=== PATIENT | female | born 1940 | race Caucasian/White ===

== ENCOUNTER → 2016-11-29 | Outpatient (CLI) | payer MEDICARE, OTHER ==
[~2016-11-29] MED LIST: ACET325T38 PO; ACT35T; AGM875T; ASP325T PO; ASP81TEC PO; ATEN25TA PO; ATEN50TA PO; ATN25T PO; ATOR80TA PO; ATOR80TA76 PO; CALC-80 PO; CEFU500T PO; CLOP75TA28 PO; CLPD75T PO; CYCL10TA45; CYCL5TAB11 PO; FISH1CAP15 PO; FRSM20T; FURO40TA4 PO; FURO80TA3 PO; HCT25T PO; HCTZ12.5T PO; HYDR25TA4 PO; KCL10CCR PO; LEVO100T7 PO; LEVO250T7; LEVO500T69 PO; LOSA25TA15 PO; LOSA25TA21 PO; LOSA25TA5 PO; LVT.1T PO; NFCORC1000; NITR0.4T12 SL; NTR.4SL SL; OMG1KC PO; PREMARIN VAG CR45 GM VG; RANO10003 PO; RANO500T3 PO; RISE150T PO; RMP5C PO; SPIR25TA PO; SPIR25TA3 PO; SPRN25T PO; TRAM50TA2 PO
--- NOTE | 2016-11-29 11:45 | Diagnostic Imaging Report ---
INDICATION: Cough. PA and lateral views of the chest are obtained with comparison made to study of 09/05/2015. FINDINGS: Heart size and pulmonary vascularity are within normal limits. Dual-chamber cardiac pacemaker remains in stable position. There is no evidence of pneumothorax, consolidation or significant pleural fluid. Thoracic spondylosis is again noted. IMPRESSION: No acute abnormality or significant change is identified. Dictated by: Dictated on workstation # [id number]
== END ==
LOC: RAD 11:10
PROVIDERS: ATTEND Internal Medicine
DX: R05 Cough (principal); R09.89 Other specified symptoms and signs involving the circulatory and respiratory systems
CPT/HCPCS: 71020

== ENCOUNTER → 2017-05-03 | Outpatient (CLI) | payer MEDICARE, OTHER ==
[~2017-05-03] MED LIST changes: +CATHETER FLUSH 10 ML SYR IV PRN; +REGADENOSON 0.4 MG/5 ML SYR (LEXISCAN) IV ONE
[2017-05-03 09:31] VITALS: BP 188/99
--- NOTE | 2017-05-04 14:25 | STRESS TEST ---
DATE OF SERVICE: 05/03/2017 REPORT TITLE: RESTING AND POST REGADENOSON TECHNETIUM 99M TETROFOSMIN SPECT CT IMAGING ORDERING PHYSICIAN: Dr. Robert. PRIMARY PHYSICIAN: Dr. Wade. CLINICAL DIAGNOSIS: Coronary artery disease. DESCRIPTION: Baseline images were carried out after injection of 10.21 mCi of Technetium 99m Tetrofosmin. This was followed by 0.4 mg regadenoson and 30.7 mCi of Technetium-99m Tetrofosmin for stress imaging. The electrocardiogram showed sinus rhythm with ST and T-wave abnormality in the inferolateral leads. This did not change with the regadenoson infusion. Review of images at rest and following stress indicates a basal inferior perfusion defect that is predominantly fixed. Gated images show basal inferior hypokinesis to akinesis. Left ventricular ejection fraction is calculated to be 48%. Left ventricular end diastolic volume is 61 mL. TID is absent (0.98). CONCLUSIONS: 1. The study is indicative of a small basal inferior infarction with only a small amount of mehul-infarct ischemia. 2. Basal inferior hypokinesis to akinesis. 3. Left ventricular ejection fraction is calculated to be 48%. Job ID: [id number] DocumentID: [id number] Dictated Date: 05/03/2017 14:39:50 Shoe Stitcher Odd Date: 05/03/2017 21:10:06 Dictated By: ZOEY ROBERT MD, MA, FACP, FACC,
== END ==
LOC: CARD 08:03
PROVIDERS: ATTEND Internal Medicine Cardiovascular Disease
DX: I25.10 Atherosclerotic heart disease of native coronary artery without angina pectoris (principal); Z95.0 Presence of cardiac pacemaker; I25.5 Ischemic cardiomyopathy; I65.23 Occlusion and stenosis of bilateral carotid arteries; E78.4 Other hyperlipidemia; I10 Essential (primary) hypertension; I49.5 Sick sinus syndrome
CPT/HCPCS: 78452; 93017

== ENCOUNTER → 2017-07-07 | Outpatient (CLI) | payer MEDICARE, OTHER ==
[~2017-07-07] MED LIST changes: -CATHETER FLUSH 10 ML SYR IV PRN; -REGADENOSON 0.4 MG/5 ML SYR (LEXISCAN) IV ONE
== END ==
LOC: RAD 10:19
PROVIDERS: ATTEND Internal Medicine
DX: Z12.31 Encounter for screening mammogram for malignant neoplasm of breast (principal)
CPT/HCPCS: 77067

== ENCOUNTER → 2017-08-25 | Outpatient (CLI) | payer MEDICARE, OTHER ==
--- NOTE | 2017-08-25 08:30 | Diagnostic Imaging Report ---
PROCEDURE: CT sinuses without contrast TECHNIQUE: Multiple contiguous axial images were obtained through the sinuses without the use of intravenous contrast. Coronal and sagittal reformations were then performed. INDICATION: Chronic sinusitis. COMPARISON: None FINDINGS: Evaluation of the paranasal sinuses demonstrates air-fluid levels within the bilateral maxillary sinuses as well as mild mucosal thickening, left greater than right. Despite this, the osteomeatal complexes do appear to be patent. The remainder of the paranasal sinuses are unremarkable. Bony nasal septum is deviated to the right. Otherwise, the nasal septum is intact. Bilateral nasal bones are intact as well. No other acute appearing osseous abnormalities are seen. Mastoid air cells are clear bilaterally. Superficial soft tissue structures are unremarkable. Included portions of the intracranial structures show no additional acute abnormalities. IMPRESSION: 1. Mucosal thickening with air-fluid levels in the bilateral maxillary sinuses, left greater than right. Correlation with acute sinusitis is recommended. Dictated by: Dictated on workstation # [id number]
== END ==
LOC: RAD 07:29
PROVIDERS: ATTEND Nurse Practitioner
DX: J32.0 Chronic maxillary sinusitis (principal)
CPT/HCPCS: 70486

== ENCOUNTER 2018-01-23 16:55 | Outpatient (RCR) | payer MEDICARE, OTHER ==
[~2018-01-23 16:55] MED LIST changes: -SPIR25TA3 PO; +SPIR25TA5 PO
== END 2018-02-01 | disposition home or self-care (01) ==
LOC: CR3 16:55
PROVIDERS: ATTEND Internal Medicine Cardiovascular Disease
DX: Z29.8 Encounter for other specified prophylactic measures (principal)

== ENCOUNTER 2018-03-15 16:33 | Outpatient (RCR) | payer MEDICARE, OTHER ==
[~2018-03-15 16:33] MED LIST changes: -LOSA25TA21 PO; +LOSA25TA6 PO
== END 2018-04-14 | disposition home or self-care (01) ==
LOC: CR3 16:33
PROVIDERS: ATTEND Internal Medicine Cardiovascular Disease
DX: Z29.8 Encounter for other specified prophylactic measures (principal)

== ENCOUNTER 2018-05-17 13:20 | Outpatient (RCR) | payer MEDICARE, OTHER | END 2018-05-31 | disposition home or self-care (01) | LOC: CR3 13:20 | PROVIDERS: ATTEND Internal Medicine Cardiovascular Disease | DX: Z29.8 Encounter for other specified prophylactic measures (principal) ==

== ENCOUNTER → 2018-07-10 | Outpatient (CLI) | payer MEDICARE, OTHER ==
--- NOTE | 2018-07-11 15:45 | Diagnostic Imaging Report ---
EXAM: Digital mammogram, bilateral screening with 3D tomosynthesis and Computer Aided Detection (CAD) system. COMPARISON: This study was compared to the prior exams of 07/07/2017, 07/06/2016 and 06/25/2015. There are no current complaints. FINDINGS: There are scattered fibroglandular densities in both breasts which could obscure a lesion. Overall, there does not appear to have been any significant change when compared to the prior exam. No primary or secondary sign of malignancy is noted. IMPRESSION: There is no radiographic evidence for malignancy. ACR BI-RADS Category 1: Negative. Result letter will be mailed to the patient. Note: At least 10% of breast cancer is not imaged by mammography. Dictated by: Dictated on workstation # [id number]
== END ==
LOC: RAD 07:42
PROVIDERS: ATTEND Nurse Practitioner
DX: Z12.31 Encounter for screening mammogram for malignant neoplasm of breast (principal)
CPT/HCPCS: 77067

== ENCOUNTER 2018-09-04 14:00 | Outpatient (RCR) | payer MEDICARE, OTHER ==
[~2018-09-04 14:00] MED LIST changes: +LOSA25TA41 PO; -LOSA25TA6 PO
== END 2018-09-06 | disposition home or self-care (01) ==
LOC: CR3 14:00
PROVIDERS: ATTEND Internal Medicine Cardiovascular Disease
DX: Z29.8 Encounter for other specified prophylactic measures (principal)

== ENCOUNTER 2018-11-10 13:23 | Outpatient (RCR) | payer MEDICARE, OTHER | END 2018-12-08 | disposition home or self-care (01) | LOC: CR3 13:23 | PROVIDERS: ATTEND Internal Medicine Cardiovascular Disease | DX: Z29.8 Encounter for other specified prophylactic measures (principal) ==

== ENCOUNTER → 2018-11-23 | Outpatient (CLI) | payer MEDICARE, OTHER ==
[~2018-11-23] MED LIST changes: +HOLD METFORMIN - RECEIVED CONTRAST 20 ML VIAL IV SCH; +IOHEXOL 350 MG/ML 100 ML (OMNIPAQUE 350) VIAL IV ONE; +NS 250 ML (IVPB) BAG IV ONE
[2018-11-23 07:54] LABS: CREATININE SERUM 1.06 MG/DL (0.60-1.30)
--- NOTE | 2018-11-23 09:25 | Diagnostic Imaging Report ---
PROCEDURE: CT head with and without contrast. TECHNIQUE: Multiple contiguous axial images were obtained through the brain before and after the administration of intravenous contrast. Auto Exposure Controls were utilized during the CT exam to meet ALARA standards for radiation dose reduction. INDICATION: Difficulty hearing. No prior studies available for comparison. FINDINGS: Precontrast imaging through the brain demonstrates ventricles and sulci to be prominent consistent with the patient's age. No sulcal effacement or midline shift is seen. No acute intra-axial or extra-axial hemorrhage is detected. Cisterns are patent. Postcontrast images are without abnormal enhancement. IMPRESSION: Senescent changes. Otherwise unremarkable pre-and postcontrast CT of the brain. Dictated by: Dictated on workstation # [id number]
== END ==
LOC: RAD 07:10
PROVIDERS: ATTEND Otolaryngology Otolaryngology/Facial Plastic Surgery
DX: H91.8X1 Other specified hearing loss, right ear (principal); R54 Age-related physical debility
CPT/HCPCS: 36415; 70470; 82565; 84520

== ENCOUNTER 2018-12-25 14:00 | Outpatient (RCR) | payer MEDICARE, OTHER ==
[~2018-12-25 14:00] MED LIST changes: -HOLD METFORMIN - RECEIVED CONTRAST 20 ML VIAL IV SCH; -IOHEXOL 350 MG/ML 100 ML (OMNIPAQUE 350) VIAL IV ONE; -NS 250 ML (IVPB) BAG IV ONE
[2019-01-02] MEDS ORDERED: ISOS30TA3 PO (09:43)
[2019-01-02] MEDS ORDERED: CA C1TAB75 PO (09:43)
[2019-01-02] MEDS ORDERED: OMEP20CA12 PO (09:43)
== END 2019-01-24 | disposition home or self-care (01) ==
LOC: CR3 14:00
PROVIDERS: ATTEND Internal Medicine Cardiovascular Disease
DX: Z29.8 Encounter for other specified prophylactic measures (principal)

== ENCOUNTER 2019-01-02 08:42 | Day surgery (SDC) | payer MEDICARE, OTHER ==
[~2019-01-02] VITALS: Ht 154.9 cm; Wt 68.0 kg
[2019-01-02] VITALS (17 sets, daily range): BP systolic 126–155; BP diastolic 56–90
[2019-01-02] MEDS ORDERED: LIDOCAINE 1% INJ 20 ML 20 ML VIAL ONE (08:50)
[2019-01-02] MEDS ORDERED: HEParin (CATH LAB) 2,000 ML IV ONE (08:50)
[2019-01-02] MEDS ORDERED: NS IV 1000 ML 1,000 ML IV SCH (08:52)
[2019-01-02 09:23] LABS: HEMOGLOBIN 12.8 G/DL (11.5-16.0); MEAN PLATELET VOLUME 11.9 FL (7.4-10.4); RED CELL DISTRIBUTION WIDTH 14.1 % (10.0-14.5); WHITE BLOOD COUNT 4.6 10^3/uL (4.3-11.0)
[2019-01-02 09:39] LABS: PROTHROMBIN TIME PATIENT 13.4 SEC (12.2-14.7)
[2019-01-02] MEDS ORDERED: MIDAZOLAM 5 MG/5 ML (VERSED) VIAL ONE (09:43)
[2019-01-02] MEDS ORDERED: ISOS30TA3 PO (09:43)
[2019-01-02] MEDS ORDERED: OMEP20CA12 PO (09:43)
[2019-01-02] MEDS ORDERED: fentaNYL INJECTION 100 MCG/2 ML AMP ONE (09:43)
[2019-01-02] MEDS ORDERED: CA C1TAB75 PO (09:43)
[2019-01-02 09:45] LABS: ALBUMIN 4.4 GM/DL (3.2-4.5); BILIRUBIN,TOTAL 0.6 MG/DL (0.1-1.0); CALCIUM 9.6 MG/DL (8.5-10.1); CREATININE SERUM 1.2 MG/DL (0.60-1.30); POTASSIUM 3.8 MMOL/L (3.6-5.0); TOTAL PROTEIN 6.9 GM/DL (6.4-8.2)
[2019-01-02] MEDS ORDERED: methylPREDNISolone 125 MG (Solu-MEDROL) VIAL ONE (10:17)
[2019-01-02] MEDS ORDERED: diphenhydrAMINE 50 MG/ML INJ (BENADRYL) ONE (10:17)
--- NOTE | 2019-01-02 11:15 | Cardiac Procedure Note-CS/ASA ---
Pre-Procedure Note Pre-Op Procedure Note H&P Reviewed The H&P was reviewed, patient examined and no changes noted. Date H&P Reviewed: Jan 02, 2019 Time H&P Reviewed: 10:00 Conscious Sedation Pre-Proced Time 10:00 ASA Score 3 For ASA 3 and 4: Consider anesthesia and medical clearance. Also, for patients with a history of failed moderate sedation consider anesthesia. Airway Lungs Heart ASA score ASA 1: a normal healthy patient ASA 2: a patient with a mild systemic disease (mid diabetes, controlled hypertension, obesity ASA 3: a patient with a severe systemic disease that limits activity (angina, COPD, prior Myocardial infarction) ASA 4: a patient with an incapacitating disease that is a constant threat to life (CHF, renal failure) ASA 5: a moribund patient not expected to survive 24 hrs. (ruptured aneurysm) ASA 6: a declared brain- patient whose organs are being harvested. For emergent operations, add the letter E after the classification Mallampati Classification Grade 2 Sedation Plan Analgesia, Amnesia, Plan communicated to team members, Discussed options with patient/fam, Discussed risks with patient/fam The patient is an appropriate candidate to undergo the planned procedure, sedation, and anesthesia. The patient immediately re-assessed prior to indication. ZOEY DEAL MD FACP FAC CCDS Jan 02, 2019 11:15
--- NOTE | 2019-01-02 11:17 | Discharge Inst-Cardiology ---
Discharge Inst-Cardiac Discharge Medications Continued Medications: Aspirin (Aspirin Ec 81 Mg) 81 Mg Tabec 81 MG PO DAILY Atenolol (Atenolol) 25 Mg Tablet 25 MG PO BID Atorvastatin Calcium (Atorvastatin Calcium) 80 Mg Tablet 80 MG PO HS Ca Carbonate/Vitamin D3/Vit K (Calcium + D Soft Chewable Tab) 1 Each Tab.chew 2 EACH PO DAILY, TAB Calcium Carbonate/Vitamin D3 (Calcium 600 + D Caplet) 1 Each Tablet 2 TAB PO DAILY Clopidogrel Bisulfate (Clopidogrel) 75 Mg Tablet 75 MG PO DAILY Cyclobenzaprine Hcl (Flexeril) 5 Mg Tablet 5 MG PO Q6H PRN for MUSCLE SPASMS Estrogens Conjugated (Premarin Vag Cream) 45 Gm Cr 1 APPFUL VG FIRST OF EA MONTH Fish Oil/Dha/Epa (Fish Oil 1,200 Mg Fish Oil) 1 Each Capsule 2400 MG PO HS TAKES 2 (1,200MG) CAPSULES Furosemide (Furosemide) 80 Mg Tablet 80 MG PO PRN Isosorbide Mononitrate (Isosorbide Mononitrate ER) 30 Mg Tab.er.24h 30 MG PO DAILY, TAB Levothyroxine Sodium (Levothyroxine Sodium) 100 Mcg Tablet 100 MCG PO DAILY Losartan Potassium (Losartan Potassium) 25 Mg Tablet 25 MG PO DAILY Nitroglycerin (Nitrostat) 0.4 Mg Tab 0 SL UD PRN for CHEST PAIN 1 TABLET EVERY 5 MINUTES X 3 DOSES NEEDED FOR CHEST PAIN Omeprazole (Omeprazole) 20 Mg Capsule.dr 20 MG PO DAILY, CAP Risedronate Sodium (Actonel) 150 Mg Tablet 150 MG PO OF EACH MONTH Spironolactone (Spironolactone) 25 Mg Tablet 25 MG PO DAILY Tramadol HCl (Tramadol HCl) 50 Mg Tablet 50 MG PO Q4H PRN for PAIN ZOEY DEAL MD FACP FACC CCDS Jan 02, 2019 11:17
--- NOTE | 2019-01-02 11:18 | Discharge Inst-Post CATH ---
Discharge Inst-CATH/EP Post Cardiac Cath/EP D/C Inst Follow Up/Plan F/u with Dr Robert in 2 weeks ACTIVITY * Go Home directly and rest. * Limit activity of the leg (or wrist if it was used) for 7 days including aerobics, swimming, jogging, bicycling, etc. * Restrict stair-climbing for 7 days if possible, if not, climb up with your n on-cath leg, then bring together on the same step. * Avoid lifting, pushing, pulling or excessive movement of the affected ex tremity for 7 days. * Customary sexual activity may be resumed after 2 days-use caution not to use a position that strains or causes pain to the affected extremity. * No driving for 24 hours. * NO SMOKING. * Avoid straining for bowel movements for 7 days. * Gentle walking on level ground is allowed. * Returning to work will depend on the type of procedure and the results. Your doctor will discuss this with you. CALL YOUR DOCTOR FOR ANY OF THE FOLLOWING: *If bleeding from the puncture site occurs- Apply gentle pressure to site with clean cloth and call your doctor or EMS. * If a knot or lump forms under the skin, increases in size, or causes pain. * If bruising appears to be worsening or moving further down your leg instead of disappearing. * Temperature above 101 F. CARE OF YOUR GROIN INCISION; * Bruising or purple discoloration of the skin near the puncture site is common. * You may shower only, no bathtub bathing for 5 days. Be careful to avoid slipping as your leg may feel stiff. * If a closure device was used on your femoral artery, please see the attached guide regarding care of the device and your leg. * Leave dressing on FOR 24 hours. CARE OF YOUR WRIST INCISION; * Bruising or purple discoloration of the skin near the puncture site is common. * You may shower. * DO NOT submerge wrist. * Leave dressing on FOR 24 hours. ZOEY ROBERT MD FACP FAC CCDS Jan 02, 2019 11:18
--- NOTE | 2019-01-02 13:05 | CARDIAC CATHETERIZATION ---
DATE OF SERVICE: 01/02/2019 CARDIAC CATHETERIZATION REPORT INDICATIONS: The patient is an 78-year-old lady who is known to have coronary artery disease and has had coronary artery bypass surgery. She has been experiencing increasing shortness of breath and chest discomfort suggestive of new onset angina. Cardiac catheterization was carried out today after having obtained an informed consent. PROCEDURE: She was brought to the cardiac catheterization laboratory in a fasting state. Right groin was prepared and draped in the usual sterile fashion. Lidocaine 1% used for local anesthesia. Modified Seldinger technique was used to advance a 5-[place] sheath into the right femoral artery. Catheter exchanges were carried out over a [employer] wire. A 5-[place] JL4 catheter for left coronary angiography. A 5-[place] JR4 catheter for right coronary angiography and for angiography of the vein grafts. We used an SANTINO catheter for angiography of the left internal mammary artery graft to the left anterior descending artery. We used 5-[place] pigtail catheter for left heart catheterization and left ventricular angiography. At the beginning of the procedure, at the time of sheath insertion, angiography of the right femoral artery was carried out. At the end of the procedure, Mynx was used to achieve hemostasis following sheath removal. She tolerated the procedure well. HEMODYNAMICS: Left ventricular end-diastolic pressure following coronary angiography was 16 mmHg. There was no significant pressure gradient on pullback across the aortic valve. Ascending aortic pressure was 132/66 with a mean of 79 mmHg. LEFT VENTRICULAR ANGIOGRAPHY: Left ventricular angiography was carried out in the right anterior oblique projection. Global left ventricular systolic function is impaired. There is posterobasal akinesis. Left ventricular ejection fraction is estimated to be approximately 45%. CORONARY ANGIOGRAPHY: Diffuse coronary calcification is present. Left main coronary artery does not exhibit significant obstructive disease. Left anterior descending artery has a 50% to 60% mid vessel stenosis. There is a patent left internal mammary artery graft to the left anterior descending artery. The left circumflex artery has a patent stent in its mid portion. The proximal left circumflex artery has approximately 30% stenosis. The vein graft to the distal left circumflex artery is occluded. The right coronary artery is occluded in its proximal portion. The vein graft to the right coronary artery is occluded in its proximal portion. SAPHENOUS VEIN GRAFT ANGIOGRAPHY: Saphenous vein graft to the left circumflex artery was occluded in its proximal portion and a saphenous vein graft to right coronary artery is occluded in its proximal portion. LEFT INTERNAL MAMMARY ARTERY GRAFT ANGIOGRAPHY: Left internal mammary artery graft to the distal left anterior descending artery is widely patent and free of significant disease. CONCLUSIONS: 1. Coronary artery disease consisting of 50% to 60% mid vessel stenosis of the left circumflex, total occlusion of the proximal right coronary and mild proximal disease of the left circumflex. A stent in the mid left circumflex artery is widely patent. 2. Saphenous vein grafts to the right coronary and the distal left circumflex are occluded. 3. Left internal mammary artery graft to left anterior descending is widely patent. 4. Mild to moderate elevation of left ventricular end-diastolic pressure. 5. Impairment of global left ventricular systolic function with ejection fraction approximately 45%. 6. Posterior basal akinesis. DISCUSSION AND RECOMMENDATIONS: Based on results of the study, it appears appropriate to continue a conservative approach. Risk factor modification has been reviewed. Outpatient followup is advised. Job ID: [id number] DocumentID: [id number] Dictated Date: 01/02/2019 10:55:59 Medicare Contact Specialist Date: 01/02/2019 13:04:40 Dictated By: ZOEY DEAL MD, MA, FACP, FACC, MTDD
--- NOTE | 2019-01-02 14:05 | Diagnostic Imaging Report ---
INDICATION: Status post heart catheterization three hours ago with pain in the right groin. FINDINGS: Sonographic interrogation of the right groin was performed. There is a hematoma in the right groin measuring 6.8 x 1.4 x 2.4 cm in size. No internal vascularity is seen to suggest pseudoaneurysm. No AV fistula is seen. IMPRESSION: Right groin hematoma. No pseudoaneurysm is detected. Dictated by: Dictated on workstation # [id number]
== END 2019-01-02 16:40 | disposition home or self-care (01) ==
LOC: CATH 08:42 → SDC 11:30 → CATH 16:40
PROVIDERS: ATTEND Internal Medicine Cardiovascular Disease
DX: I25.10 Atherosclerotic heart disease of native coronary artery without angina pectoris (principal); I25.5 Ischemic cardiomyopathy; I12.9 Hypertensive chronic kidney disease with stage 1 through stage 4 chronic kidney disease, or unspecified chronic kidney disease; D64.9 Anemia, unspecified; N18.3 Chronic kidney disease, stage 3 (moderate); I49.5 Sick sinus syndrome; E78.5 Hyperlipidemia, unspecified; E03.9 Hypothyroidism, unspecified; I65.23 Occlusion and stenosis of bilateral carotid arteries; Z87.891 Personal history of nicotine dependence; Z95.1 Presence of aortocoronary bypass graft; Z79.82 Long term (current) use of aspirin; Z79.899 Other long term (current) drug therapy
CPT/HCPCS: 36415; 80053; 80061; 85027; 85610; 85730; 87081; 93005; 93459; 93926

== ENCOUNTER → 2019-01-15 | Outpatient (CLI) | payer MEDICARE, OTHER ==
[~2019-01-15] MED LIST changes: +CA C1TAB75 PO; +ISOS30TA3 PO; +OMEP20CA12 PO
--- NOTE | 2019-01-15 18:04 | Diagnostic Imaging Report ---
INDICATION: Ischemic cardiomyopathy, patient is having right lower extremity pain. COMPARISON STUDY: Right lower extremity arterial Doppler dated 01/02/2019. This was for evaluation of possible pseudoaneurysm only. FINDINGS: Right common femoral artery has triphasic flow. Velocity is 140 cm/s which is slightly elevated. Some mild plaque is present within this. No stenotic lesions are present. Profunda artery is biphasic with normal velocities. The superficial femoral artery has triphasic flow. No accelerations are present. No plaque is identified. The popliteal artery has biphasic flow. Mild plaque is present. The posterior tibial and dorsalis pedis artery have biphasic flow. IMPRESSION: There is mild atherosclerosis. No stenosis is seen. Dictated by: Dictated on workstation # [id number]
== END ==
LOC: RAD 17:20
PROVIDERS: ATTEND Nurse Practitioner Family
DX: I70.201 Unspecified atherosclerosis of native arteries of extremities, right leg (principal); I25.5 Ischemic cardiomyopathy; R10.30 Lower abdominal pain, unspecified
CPT/HCPCS: 93926

== ENCOUNTER → 2019-03-19 | Outpatient (CLI) | payer MEDICARE, OTHER ==
[~2019-03-19] MED LIST changes: -OMEP20CA12 PO; +OMEP20CA13 PO; +RT-ALBUTEROL SULF 2.5 MG/3 ML PRE-MIX VIAL INH ONE
== END ==
LOC: RT 10:56
PROVIDERS: ATTEND Nurse Practitioner Family
DX: I25.5 Ischemic cardiomyopathy (principal); R10.31 Right lower quadrant pain
CPT/HCPCS: 94010; 94060; 94726; 94729

== ENCOUNTER → 2019-03-28 | Outpatient (CLI) | payer MEDICARE, OTHER ==
[~2019-03-28] MED LIST changes: +HOLD METFORMIN - RECEIVED CONTRAST 20 ML VIAL IV SCH; +IOHEXOL 350 MG/ML 100 ML (OMNIPAQUE 350) VIAL IV ONE; +NS 100 ML (IVPB) BAG IV ONE; -RT-ALBUTEROL SULF 2.5 MG/3 ML PRE-MIX VIAL INH ONE
--- NOTE | 2019-03-28 13:18 | Diagnostic Imaging Report ---
PROCEDURE: CT abdomen and pelvis with contrast. TECHNIQUE: Multiple contiguous axial images were obtained through the abdomen and pelvis after administration of intravenous contrast. Auto Exposure Controls were utilized during the CT exam to meet ALARA standards for radiation dose reduction. INDICATION: Abdominal pain and swelling with diarrhea. FINDINGS: The heart size is normal. There is scarring in the lung bases. The liver is normal in size. There is a cyst in the left lobe of the liver. There is no biliary ductal dilatation. Gallbladder is surgically absent. Spleen is normal. Pancreas and adrenal glands are unremarkable. There is some atrophy of the right kidney. Left kidney is normal. There is some atherosclerotic calcification of the aorta which is nonaneurysmal. Bowel gas pattern is nonspecific. There is no free air. There is no ascites. There are no focal inflammatory changes. There is diverticular disease without evidence of diverticulitis. There are degenerative and postsurgical changes of the lumbar spine. IMPRESSION: Benign hepatic cyst. Atrophy of the right kidney. Diverticular disease without evidence of diverticulitis. Degenerative and postsurgical changes in the spine. Dictated by: Dictated on workstation # [id number]
== END ==
LOC: RAD 11:36
PROVIDERS: ATTEND Internal Medicine
DX: K76.89 Other specified diseases of liver (principal); K57.90 Diverticulosis of intestine, part unspecified, without perforation or abscess without bleeding; N26.1 Atrophy of kidney (terminal); M47.816 Spondylosis without myelopathy or radiculopathy, lumbar region; Z98.890 Other specified postprocedural states
CPT/HCPCS: 74177

== ENCOUNTER 2019-04-25 13:41 | Outpatient (RCR) | payer MEDICARE, OTHER ==
[~2019-04-25 13:41] MED LIST changes: -HOLD METFORMIN - RECEIVED CONTRAST 20 ML VIAL IV SCH; -IOHEXOL 350 MG/ML 100 ML (OMNIPAQUE 350) VIAL IV ONE; -NS 100 ML (IVPB) BAG IV ONE
== END 2019-05-23 | disposition home or self-care (01) ==
LOC: CR3 13:41
PROVIDERS: ATTEND Internal Medicine Cardiovascular Disease
DX: Z29.8 Encounter for other specified prophylactic measures (principal)

== ENCOUNTER → 2019-06-18 | Outpatient (CLI) | payer MEDICARE, OTHER ==
[~2019-06-18] MED LIST changes: +OMEP-280 PO; -OMEP20CA13 PO; +TRM50T PO
--- NOTE | 2019-06-18 09:21 | Diagnostic Imaging Report ---
INDICATION: Screening The current study was also evaluated with a Computer Aided Detection (CAD) system. 3-D Tomographic imaging was also performed. Comparison made with prior examination of 07/10/2018, 07/07/2017 and 07/06/2016. FINDINGS: There are scattered fibroglandular densities bilaterally. A few benign type calcifications. There is no dominant mass, spiculated lesion or suspicious calcification identified. The skin and nipples and axilla are unremarkable. IMPRESSION: Category 2 benign. ACR BI-RADS Category 2: Benign findings. Result letter will be mailed to the patient. Note: At least 10% of breast cancer is not imaged by mammography. Dictated by: Dictated on workstation # [id number]
== END ==
LOC: RAD 07:38
PROVIDERS: ATTEND Internal Medicine
DX: Z12.31 Encounter for screening mammogram for malignant neoplasm of breast (principal)
CPT/HCPCS: 77067

== ENCOUNTER → 2019-09-06 | Outpatient (CLI) | payer MEDICARE, OTHER ==
[~2019-09-06] MED LIST changes: -OMEP-280 PO; +OMEP20CA18 PO
--- NOTE | 2019-09-06 09:16 | Diagnostic Imaging Report ---
INDICATION: Cough, wheezing. COMPARISON: November 29, 2016 TECHNIQUE: Frontal and lateral radiographs of the chest dated September 06, 2018. FINDINGS: Postsurgical changes of a CABG are again identified. Pacer device is present with the battery pack overlying the left chest. The cardiac silhouette is at the upper limits of normal in size, though stable. No significant pulmonary vascular congestion. Calcified granuloma within the right lung base. The lungs are clear of focal pulmonary opacity. Cardiac stent is in place. Blunting of the posterior costophrenic angles. Scattered osseous degenerative changes without acute osseous abnormality. IMPRESSION: Trace pleural fluid versus pleural thickening posteriorly. Additional postsurgical and chronic findings as above. Dictated by: Dictated on workstation # [id number]
== END ==
LOC: RAD 08:49
PROVIDERS: ATTEND Internal Medicine
DX: J84.10 Pulmonary fibrosis, unspecified (principal); M19.90 Unspecified osteoarthritis, unspecified site; Z95.1 Presence of aortocoronary bypass graft; Z95.0 Presence of cardiac pacemaker; Z95.5 Presence of coronary angioplasty implant and graft
CPT/HCPCS: 71046

== ENCOUNTER → 2020-06-17 | Outpatient (CLI) | payer MEDICARE, OTHER ==
[~2020-06-17] MED LIST changes: +CATHETER FLUSH 10 ML SYR IV PRN; +REGADENOSON 0.4 MG/5 ML SYR (LEXISCAN) IV ONE
[2020-06-17] MEDS: CATHETER FLUSH 10 ML SYR IV PRN ×2 (12:09→13:10)
[2020-06-17 13:07] VITALS: BP 122/83
--- NOTE | 2020-06-17 17:37 | STRESS TEST ---
DATE OF SERVICE: 06/17/2020 RESTING AND POST REGADENOSON TECHNETIUM-99M TETROFOSMIN SPECT CT IMAGING ORDERING PHYSICIAN: Nini Francois APRN PRIMARY PHYSICIAN: Dr. Wade. OTHER PHYSICIAN: Dr. Deal. CLINICAL DIAGNOSES: Coronary artery disease. Baseline images were carried out after injection of 10.84 mCi of technetium-99m Tetrofosmin. This was followed by 0.4 mg of Regadenoson and 32.5 mCi of technetium-99m Tetrofosmin for stress imaging. The electrocardiogram shows an atrial rhythm at baseline that appears to be a paced atrial rhythm. There is diffuse ST and T-wave abnormality, nonspecific. The electrocardiogram did not change significantly with the Regadenoson infusion. She tolerated the procedure well. Review of images at rest and following stress indicates an inferolateral perfusion defect that is predominantly fixed. Gated images show inferolateral akinesis. Left ventricular ejection fraction is calculated to be 35%. Left ventricular end diastolic volume is 87 mL. TID is absent (1.15). CONCLUSIONS: 1. This study is indicative of inferolateral myocardial infarction without significant ischemia. 2. Impairment of global left ventricular systolic function with a calculated ejection fraction of 35%. 3. Inferolateral akinesis. Job ID: [id number] DocumentID: [id number] Dictated Date: 06/17/2020 14:37:22 Clam Shucker Date: 06/17/2020 17:35:30 Dictated By: ZOEY DEAL MD, MA, FACP, FACC,
== END ==
LOC: CARD 11:22
PROVIDERS: ATTEND Nurse Practitioner Family
DX: I25.10 Atherosclerotic heart disease of native coronary artery without angina pectoris (principal); I22.1 Subsequent ST elevation (STEMI) myocardial infarction of inferior wall; I08.0 Rheumatic disorders of both mitral and aortic valves
CPT/HCPCS: 78452; 93017; 93306; A9502

== ENCOUNTER → 2020-06-19 | Outpatient (CLI) | payer MEDICARE, OTHER ==
[~2020-06-19] MED LIST changes: -CATHETER FLUSH 10 ML SYR IV PRN; -REGADENOSON 0.4 MG/5 ML SYR (LEXISCAN) IV ONE
--- NOTE | 2020-06-19 11:55 | Diagnostic Imaging Report ---
INDICATION: Routine screening. Comparison is made with prior mammogram 06/18/2019 and 07/10/2018. 2-D and 3-D bilateral screening mammography was performed with CAD. Scattered fibroglandular densities are identified bilaterally. Benign calcifications in the left breast are noted. No mass or malignant appearing microcalcifications are seen. Axillae are unremarkable. IMPRESSION: BI-RADS Category 2 No mammographic features suspicious for malignancy are identified. ACR BI-RADS Category 2: Benign findings. Result letter will be mailed to the patient. Note: At least 10% of breast cancer is not imaged by mammography. Dictated by: Dictated on workstation # [id number]
== END ==
LOC: RAD 10:15
PROVIDERS: ATTEND Internal Medicine
DX: Z12.31 Encounter for screening mammogram for malignant neoplasm of breast (principal)
CPT/HCPCS: 77063; 77067

== ENCOUNTER → 2020-07-23 | Outpatient (CLI) | payer MEDICARE, OTHER ==
--- NOTE | 2020-07-23 11:31 | Diagnostic Imaging Report ---
EXAMINATION: PA and lateral chest at 11:05 AM. INDICATION: Cough. FINDINGS: The heart size is at the upper limits of normal and similar to the prior exam of 09/06/2019. The sternotomy wires, surgical clips, and left-sided pacemaker seen previously are again evident and no different. The lungs remain generally clear. There is no sign of failure, pneumonia, or pleural effusion to indicate an acute abnormality. The mediastinum is not widened. The osseous structures are intact. IMPRESSION: There is evidence of prior cardiac surgery but there is no sign of an acute cardiopulmonary abnormality. Dictated by: Dictated on workstation # [id number]
== END ==
LOC: RAD 10:43
PROVIDERS: ATTEND Internal Medicine
DX: R05 Cough (principal)
CPT/HCPCS: 71046

== ENCOUNTER → 2021-06-30 | Outpatient (CLI) | payer MEDICARE, OTHER ==
[~2021-06-30] MED LIST changes: -ISOS30TA3 PO; +ISOS30TA82 PO
--- NOTE | 2021-06-30 13:16 | Diagnostic Imaging Report ---
INDICATION: Routine screening. COMPARISON: 06/19/2020 and 06/18/2019. TECHNIQUE: 2D and 3D bilateral screening mammography was performed with CAD. FINDINGS: Scattered fibroglandular densities are identified bilaterally. Benign-appearing calcifications in the medial left breast are noted. No spiculated mass or malignant appearing microcalcifications are seen. A pacemaker battery pack is noted in the left axilla. IMPRESSION: No mammographic features suspicious for malignancy are identified. ACR BI-RADS Category 2: Benign findings. Result letter will be mailed to the patient. Note: At least 10% of breast cancer is not imaged by mammography. Dictated by: Dictated on workstation # [id number]
== END ==
LOC: RAD 11:15
PROVIDERS: ATTEND Nurse Practitioner Family
DX: Z12.31 Encounter for screening mammogram for malignant neoplasm of breast (principal)
CPT/HCPCS: 77063; 77067

== ENCOUNTER → 2021-10-20 | Outpatient (CLI) | payer MEDICARE, OTHER ==
[~2021-10-20] MED LIST changes: +CATHETER FLUSH 10 ML SYR IVP PRN; +REGADENOSON 0.4 MG/5 ML SYR (LEXISCAN) IV ONE
[2021-10-20 13:18] VITALS: BP 174/94
--- NOTE | 2021-10-21 11:57 | STRESS TEST ---
DATE OF SERVICE: 10/20/2021 RESTING AND POST REGADENOSON TECHNETIUM-99M TETROFOSMIN SPECT CT IMAGING ORDERING PHYSICIAN: Dr. Robert. PRIMARY PHYSICIAN: Dr. Wade. CLINICAL DIAGNOSIS: Coronary artery disease. Baseline images were carried out after injection of 10.38 mCi of technetium-99m Tetrofosmin. This was followed by 0.4 mg regadenoson and 31.1 mCi of technetium-99m Tetrofosmin for stress imaging. The electrocardiogram showed sinus rhythm at baseline. Paced atrial rhythm is seen. There is nonspecific ST and T-wave abnormality. The electrocardiogram did not change significantly with regadenoson infusion. The patient noted bilateral discomfort in the arms and a feeling of an upset stomach with regadenoson infusion, which resolved in a few minutes. Review of images at rest and following stress indicates an inferior perfusion defect that is fixed. Gated images show inferior akinesis. Left ventricular ejection fraction is calculated to be 40%. CONCLUSIONS: 1. The study is indicative of an inferior wall myocardial infarction without significant ischemia. 2. Inferior akinesis. 3. Left ventricular ejection fraction 40%. Job ID: [id number] DocumentID: [id number] Dictated Date: 10/21/2021 09:46:10 Program Developer Date: 10/21/2021 11:56:52 Dictated By: ZOEY ROBERT MD, MA, FACP, FACC,
== END ==
LOC: CARD 11:30
PROVIDERS: ATTEND Internal Medicine Cardiovascular Disease
DX: I25.10 Atherosclerotic heart disease of native coronary artery without angina pectoris (principal); I22.1 Subsequent ST elevation (STEMI) myocardial infarction of inferior wall
CPT/HCPCS: 78452; 93017; 93306; A9502

== ENCOUNTER → 2021-12-30 | Outpatient (CLI) | payer MEDICARE, OTHER ==
[~2021-12-30] MED LIST changes: -CATHETER FLUSH 10 ML SYR IVP PRN; -REGADENOSON 0.4 MG/5 ML SYR (LEXISCAN) IV ONE
--- NOTE | 2021-12-30 14:19 | Diagnostic Imaging Report ---
INDICATION: Left rib pain. FINDINGS: Three views of the left ribs demonstrate nondisplaced fractures of the 9th and 10th ribs. There is no pneumothorax or large effusion. IMPRESSION: 9th and 10th rib fractures. Dictated by: Dictated on workstation # [id number]
== END ==
LOC: RAD 13:46
PROVIDERS: ATTEND Nurse Practitioner Family
DX: S22.42XA Multiple fractures of ribs, left side, initial encounter for closed fracture (principal); X58.XXXA Exposure to other specified factors, initial encounter
CPT/HCPCS: 71100

== ENCOUNTER → 2022-05-04 | Outpatient (CLI) | payer MEDICARE, OTHER ==
--- NOTE | 2022-05-04 09:32 | Diagnostic Imaging Report ---
INDICATION: [place] a pop after bending, pain and bruising. TECHNIQUE: 3 views right ribs, 9:28 AM. CORRELATION STUDY: None FINDINGS: Right ribs are intact. There is no acute displaced fracture. Visualized right lung field unremarkable. Mildly prominent markings with calcified granuloma. Poststernotomy changes with coronary artery rings and coronary artery stenting. Partial visualization left-sided pacemaker. Cholecystectomy. Clips along with lumbar spine fusion hardware. IMPRESSION: 1. Negative for acute displaced right-sided rib fracture. Dictated by: Dictated on workstation # [id number]
== END ==
LOC: RAD 09:14
PROVIDERS: ATTEND Physician Assistant
DX: R07.81 Pleurodynia (principal); T14.8XXA Other injury of unspecified body region, initial encounter
CPT/HCPCS: 71100

== ENCOUNTER → 2022-07-06 | Outpatient (CLI) | payer MEDICARE, OTHER ==
--- NOTE | 2022-07-06 15:40 | Diagnostic Imaging Report ---
INDICATION: Routine screening. Comparison is made with prior mammogram from 06/30/2021 and 06/19/2020. 2-D and 3-D bilateral screening mammography was performed with CAD. Scattered fibroglandular densities are identified bilaterally. Intraparenchymal lymph node outer right breast is stable. Tiny circumscribed nodule outer left breast is noted and appears benign. There benign calcifications medial left breast. No spiculated mass or malignant-appearing microcalcifications are seen. Axillae are unremarkable. IMPRESSION: No mammographic features suspicious for malignancy are identified. ACR BI-RADS Category 2: Benign findings. Result letter will be mailed to the patient. Note: At least 10% of breast cancer is not imaged by mammography. BI-RADS Category 2 Dictated by: Dictated on workstation # [id number]
== END ==
LOC: RAD 10:29
PROVIDERS: ATTEND Physician Assistant
DX: Z12.31 Encounter for screening mammogram for malignant neoplasm of breast (principal)
CPT/HCPCS: 77063; 77067

== ENCOUNTER → 2023-03-04 | Outpatient (CLI) | payer MEDICARE, OTHER ==
--- NOTE | 2023-03-04 14:19 | Diagnostic Imaging Report ---
PROCEDURE: Pelvic comp/transvaginal sonogram. TECHNIQUE: Complete transabdominal and transvaginal pelvic ultrasound was performed. In addition, limited pelvic Doppler was performed. INDICATION: Pelvic pain. Patient status post hysterectomy approximately 30 years ago. The uterus is surgically absent. Right ovary measures 1.9 x 1.5 x 1.6 cm. There appears to be blood flow to right ovary. Left ovary cannot be visualized due to overlying bowel gas. No adnexal mass or free fluid is detected. IMPRESSION: Surgically absent uterus and nonvisualized left ovary due to overlying bowel gas. The study is otherwise unremarkable. Dictated by: Dictated on workstation # [id number]
== END ==
LOC: RAD 13:00
PROVIDERS: ATTEND Obstetrics & Gynecology
DX: R10.2 Pelvic and perineal pain (principal); Z90.710 Acquired absence of both cervix and uterus
CPT/HCPCS: 76830; 76856

== ENCOUNTER → 2023-03-08 | Outpatient (CLI) | payer MEDICARE, OTHER ==
--- NOTE | 2023-03-08 11:10 | Diagnostic Imaging Report ---
INDICATION: Baseline COMPARISON: None FINDINGS: AP Spine L1-L4: [BMD (g/cm2): NA] [T-Score: NA] [Z-Score: NA] [BMD Previous: NA] [BMD % Change: NA] LT Hip Neck: [BMD (g/cm2): 0.651] [T-Score: -2.8] [Z-Score: -0.5] LT Hip Total: [BMD (g/cm2):0.703] [T-Score:-2.4] [Z-Score: -0.3] [BMD Previous: 0.746] [BMD % Change: -5.8*] RT Hip Neck: [BMD (g/cm2):0.653] [T-Score:-2.8] [Z-Score:-0.5] RT Hip Total: [BMD (g/cm2):0.713] [T-score:-2.3] [Z-Score:-0.2] [BMD Previous:0.696] [BMD % Change:2.4] *Indicates significant change from prior examination based on 95% confidence level. World Health Organization criteria for BMD interpretation classify patients as Normal (T-score at or above -1.0), Osteopenic (T-score between -1.0 and -2.5) or Osteoporotic (T-score at or below -2.5). LIMITATIONS AND MODIFICATION: None. FRACTURE RISK (FRAX SCORE): The ten year probability of (%): Major Osteoporotic Fracture: [48.1] Hip Fracture: [41.1] IMPRESSION: 1. Osteoporosis. 2. Baseline examination. 3. See below National Osteoporosis Foundation guidelines on when to potentially initiate pharmacologic therapy. Based on the National Osteoporosis Foundation Guidelines, pharmacologic treatment should be initiated in any of the following, unless clinical conditions suggest otherwise: * Any patient with prior fragility fracture of the hip or vertebrae. A spine fracture indicates 5X risk for subsequent spine fracture and 2X risk for subsequent hip fracture. * Osteoporosis (T-score <-2.5). * Postmenopausal women and men age 50 and older with low bone mass/osteopenia (T-score between -1.0 and -2.5) by DXA and 10-year major osteoporotic fracture greater than 20% or a 10-year probability of hip fracture greater than 3%. These fracture risks are supplied above in the FRAX score, if applicable. * Clinician judgement and/or patient preferences may indicate treatment for people with 10-year fracture probabilities above or below these levels. Dictated by: Dictated on workstation # [id number]
== END ==
LOC: RAD 10:37
PROVIDERS: ATTEND Obstetrics & Gynecology
DX: M81.0 Age-related osteoporosis without current pathological fracture (principal)
CPT/HCPCS: 77080